=== PATIENT | female | born 1955 | race African-American/Black ===

== ENCOUNTER 2020-03-17 11:18 | Emergency (ER) | payer MEDICAID ==
[~2020-03-17] VITALS: Ht 165.1 cm; Wt 104.3 kg
--- NOTE | 2020-03-17 11:18 | NUR ---
ED Nurse Note: BROUGHT BY RA13 FROM [facility] DUE TO SOB SINCE THIS MORNING. PER EMS, SOMEONE WAS FUMIGATING WHERE SHE STAYS. DENIES CP/ANY PAIN AT THIS TIME. BREATHING NORMAL/EVEN/UNLABORED. ABLE TO COMPLETE FULL SENTENCES. DENIES HX OF ASHTMA, COPD. O2 SAT OF 99%IN RA. NAD NOTED.
--- NOTE | 2020-03-17 11:28 | Emergency Room Report ---
History of Present Illness General Chief Complaint: Dyspnea/Respdistress Source: Patient, EMS Present Illness HPI 64-year-old -[place] female with past medical history of diabetes, HTN, HLD brought in by ambulance with chief complaint of shortness of breath and LE swelling. The patient's symptoms were gradual onset, severity was moderate, duration since several days, but worse since this morning when they were fumigating insects at her [id number]. Endorses dyspnea on exertion and increased swelling to bilateral legs. She denies any hemoptysis, CP, SOB, fever, chills, nausea, vomiting, diarrhea, chest pain, weakness, rash or other symptoms. Quality: SOB Past medical history: DM, HTN, HLD Past surgical history: Denies Smoking: Denies Alcohol use: Denies Drug use: Denies Review of systems: CONST: No fevers or chills, No night sweats PULMONARY: No productive cough, ++shortness of breath CARDIAC: No chest pain, No palpitations GI: No vomiting, No diarrhea , No melena_or_BRBPR : No dysuria, No hematuria, No discharge NEURO: No new_focal_weakness_or_numbness, No confusion, No vision changes 14 point Review of Systems is otherwise negative except per HPI Physical Exam: GENERAL: Awake_alert_ nontoxic, no acute distress Spo2 98% on RA -normal. Obese EYES: Extraocular muscles are intact. Conjunctivae clear. Lids without swelling ENT: External nose and ear normal_in_appearance. Oropharynx clear. Head_atraumatic, Moist_oral_mucosa NECK: No JVD. No meningismus. No thyromegaly. Supple. Trachea midline RESP: Normal respiratory effort. Symmetric rise. No stridor. Clear_to_auscultation_No_rales_No_wheezes CARDIAC: Bradycardic. and regular rhytm. ABDOMEN: Soft. Nondistended. Nontender_No_rebound_or_guarding. MSK: Normal muscle tone, without rigidity. 2++ pitting edema BLE symmetric SKIN: Warm and dry. No visible cyanosis or pallor NEUROLOGIC: Alert, oriented x3. Motor_and_sensation_grossly_intact. No truncal ataxia. Gait_normal Psych: Normal mood and affect, normal judgment and insight - COORDINATION OF CARE Case was discussed with: Patient Any labs and imaging that were ordered were interpreted as part of the medical decision making: Medical Decision Making/Plan: Differential includes CHF, pulmonary edema, pulmonary embolism, pneumonia, ple ural effusions, pneumothorax, among others. Patient is well-appearing with bilateral lower extremity edema. EKG is sinus bradycardia without any obvious signs of ischemia. BNP is mildly elevated around 700. Patient does not have previous history of CHF. Likely new onset. Furthermore, creatinine is elevated at 1.7. Suspect AIN secondary to diabetic nephropathy versus hypertensive nephropathy. Symptoms are not likely to be due to pulmonary embolism, the patient has no significant PE risk factors and has a more likely alternate cause of their symptoms, given their chest xray findings, lung exam and presentation so workup was deferred and not pursued. The patient appears to be in new onset CHF in exacerbation and not a suitable candidate for outpatient treatment so will be admitted for inpatient diuresis and further evaluation and treatment. 1300: I was informed by RN Margaret that patient would like to leave AGAINST MEDICAL ADVICE despite DAVID, uncontrolled diabetes, and new onset CHF. She states that she wants to go back to her [facility] and feels fine The patient decided to leave AGAINST MEDICAL ADVICE. They understand the risks, benefits, and alternatives of continued treatment versus leaving. They understand the risks including but not limited to: worsening condition, missed diagnosis, permanent disability, and even associated with lack of potential further testing, monitoring, and treatments. The patient has capacity to make this decision in my opinion. The patient was encouraged to follow up with their primary care provider as soon as possible and to return immediately if they change their mind or if symptoms worsen or for any other concerns. RN was present for the discussion. All patient questions were answered. Patient was given uber back to [facility]. JOSE RN at [facility] is aware of findings here today. Allergies: Coded Allergies: No Known Allergies (Unverified , 03/17/20) COVID-19 Screening Contact w/high risk pt: No Experienced COVID-19 symptoms?: Yes COVID-19 Testing performed LAW CLERK: No Nursing Documentation-PMH Past Medical History: No History, Except For Hx Hypertension: Yes Hx Diabetes: Yes Physical Exam Vital Signs Date Time Temp Pulse Resp B/P (MAP) Pulse Ox O2 Delivery O2 Flow Rate FiO2 03/17/20 11:12 97.3 58 16 156/123 (134) 98 Room Air Sp02 EP Interpretation: reviewed, normal Medical Decision Making Diagnostic Impression: Primary Impression: CHF exacerbation Additional Impressions: Diabetes DAVID (acute kidney injury) Obesity Bradycardia Shortness of breath EKG Diagnostic Results Troponin ordered: Yes When was troponin ordered?: Mar 17, 2020 EKG Time: 11:40 EP Interpretation: sinus zeeshan Rate: bradycardiac ST Segments: no acute changes ASA given to the pt in ED: Yes PA Scribe Text 12-lead EKG (interpreted by me) Time: 1116 Indication: Rhythm analysis Tracing visualized and Interpreted by me. Rhythm: Sinus bradycardia Rate: 47 bpm QTc: 405 Morphology: No_significant_ST_elevations_or_depressions, No STEMI Impression: Sinus bradycardia. Nonspecific. No STEMI Rhythm Strip Diag. Results Rhythm Strip Time: 11:38 EP Interpretation: yes Rate: 58 Rhythm: no PVC's, no ectopy - Sinus bradycardia Chest X-Ray Diagnostic Results Chest X-Ray Diagnostic Results : PA Scribe Text Chest X-Ray: Views: 1 view(s) Indication: SOB Findings: CM. Mediastinum normal. No infiltrate. No effusions Impression: CM The X-ray(s) were independently viewed and interpreted contemporaneously Electronically signed by Adelaida leahy DO Reevaluation Time: 12:18 Last Vital Signs Date Time Temp Pulse Resp B/P (MAP) Pulse Ox O2 Delivery O2 Flow Rate FiO2 03/17/20 11:12 97.3 58 16 156/123 (134) 98 Room Air Status: improved - Sleeping, comfortable Disposition: AGAINST MEDICAL ADVICE Admit Decision Time: 13:00 Condition: Stable Patient Instructions: Shortness of Breath, [id number] Additional Instructions: You have elected to leave the hospital AGAINST MEDICAL ADVICE. Return to the ER immediately if you are having increased symptoms. 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 Follow-up with your doctor sooner if your condition requires a more timely clinical reevaluation. Return to the emergency department immediately if you feel that your condition is worsening or if you have any new or concerning symptoms. Review your discharge instructions and take any prescriptions given as instructed. [facility] PROVIDES FREE OR LOW-COST HEALTH SERVICES TO PEOPLE WHO CAN SHOW PROOF THAT THEY LIVE IN [facility]. TO FIND MORE CLINICS PARTNERED WITH [facility] TO PROVIDE SERVICE, PLEASE CALL . Adelaida Kimble D.O. Mar 17, 2020 11:28
[2020-03-17 11:34] VITALS: BP 175/60
--- NOTE | 2020-03-17 11:40 | NUR ---
ED Nurse Note: IV line was established on left forearm 20 ga, blood collected sent to lab
[2020-03-17 12:03] LABS: BASOPHILS % (AUTO) 1.3 % (0.0-2.0); EOSINOPHILS % (AUTO) 2.9 % (0.0-3.0); HEMATOCRIT 33.7 % (37.0-47.0); HEMOGLOBIN 11.5 G/DL (12.0-16.0); LYMPHOCYTES % (AUTO) 26.5 % (20.0-45.0); MEAN CORPUSCULAR VOLUME 88 FL (80-99); MONOCYTES % (AUTO) 8.6 % (1.0-10.0); NEUTROPHILS % (AUTO) 60.6 % (45.0-75.0); PLATELET COUNT 202 K/UL (150-450); RED BLOOD COUNT 3.83 M/UL (4.20-5.40); RED CELL DISTRIBUTION WIDTH 12.5 % (11.6-14.8); WHITE BLOOD COUNT 4.4 K/UL (4.8-10.8)
[2020-03-17 12:09] LABS: INR 0.9 (0.9-1.1)
[2020-03-17 12:10] LABS: CALCIUM 8.9 MG/DL (8.5-10.1); CREATININE 1.7 MG/DL (0.55-1.30); POTASSIUM 4.7 MMOL/L (3.5-5.1)
[2020-03-17 12:21] LABS: ALBUMIN 3.1 G/DL (3.4-5.0); ALBUMIN/GLOBULIN RATIO 0.9 (1.0-2.7); BILIRUBIN,TOTAL 0.2 MG/DL (0.2-1.0)
[2020-03-17] MEDS ORDERED: Nitroglycerin 2% oint pkt TOPIC ONE (12:30)
[2020-03-17] MEDS ORDERED: GLYBURIDE1.25 MG PO (12:57)
[2020-03-17] MEDS ORDERED: METFORMIN HCL500 M1 ORAL (12:57)
[2020-03-17] MEDS ORDERED: DECARA625 MCG PO (12:57)
[2020-03-17] MEDS ORDERED: ZOLOFT50 MG ORAL (12:57)
[2020-03-17] MEDS ORDERED: LISINOPRIL-HCT1 EACH ORAL (12:57)
[2020-03-17] MEDS ORDERED: VITAMIN C500 M1 ORAL (12:57)
[2020-03-17] MEDS ORDERED: BUPROPION HCL75 MG PO (12:57)
[2020-03-17] MEDS ORDERED: FERROUS SULFAT325 MG ORAL (12:57)
[2020-03-17] MEDS ORDERED: ATORVASTATIN CA20 MG ORAL (12:57)
[2020-03-17] MEDS ORDERED: BENZTROPINE MESY1 MG ORAL (12:57)
[2020-03-17] MEDS ORDERED: CARVEDILOL12.5 MG ORAL (12:57)
[2020-03-17] MEDS ORDERED: AMLODIPINE BESY10 MG ORAL (12:57)
[2020-03-17] MEDS ORDERED: RISPERDAL4 MG ORAL (12:57)
--- NOTE | 2020-03-17 13:34 | NUR ---
[facility]FIDENTIAL MORBID[facility] REPORT HAS BEEN FAXED OVER AND RECEIVED @ [phone]
[2020-03-17 13:43] VITALS: BP 144/76
--- NOTE | 2020-03-17 13:43 | NUR ---
ED Nurse Note: Patient left against medical advice. Per patient she feels so greate, to be in the hospital, and she does not feel anythyng wrong with her to stay in the hospital. Dr. Kimble explained to the patient all risks, but patient decided to leave. Stated "I will come back if anythyng will hapene to me." Patient was sent back in [facility] via [facility] # [id number]. Patient walked out from ER with steady gait, ID and IV were removed, patient took all belongings, AAO x4, VSS at this time.
--- NOTE | 2020-03-17 13:43 | NUR ---
AMA: SEE AMA FORM.
--- NOTE | 2020-03-17 13:55 | Diagnostic Imaging Report ---
Indication: Cough Technique: One view of the chest Comparison: none Findings: Lungs and pleural spaces are clear. Heart size is normal. Impression: No acute process
--- NOTE | 2020-03-17 14:10 | NUR ---
ED Nurse Note: Per JOSE, staff @[phone] at [facility], patient arrived at the facility.
--- NOTE | 2020-03-20 17:06 | Cardiology Report ---
APPROVED REPORT EKG Measurement Heart [id number] <Conclusion> Sinus bradycardia Minimal voltage criteria for LVH, may be normal variant Borderline ECG
== END 2020-03-17 13:38 | disposition left against medical advice (07) ==
LOC: EDBD 11:18 → EMR 11:51
DX: I11.0 Hypertensive heart disease with heart failure (principal); I50.9 Heart failure, unspecified; N17.9 Acute kidney failure, unspecified; E11.9 Type 2 diabetes mellitus without complications; E66.9 Obesity, unspecified; R00.1 Bradycardia, unspecified; R06.02 Shortness of breath; E78.5 Hyperlipidemia, unspecified
CPT/HCPCS: 36415; 71045; 80053; 83880; 84484; 85025; 85610; 85730; 93005; 96374; J1940; U0002; Z7502; 99284